=== PATIENT | female | born 2000 | race American Indian/Alaskan Native ===

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

== ENCOUNTER → 2020-07-04 | Emergency (ER) | payer MEDICAID ==
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
[2020-07-04 09:57] VITALS: BP 130/64; PULSE 78
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
== END | disposition home or self-care (01) ==
LOC: DL.ED 09:21
DX: S60.221A Contusion of right hand, initial encounter (principal); E66.9 Obesity, unspecified; Z91.018 Allergy to other foods; Z91.09 Other allergy status, other than to drugs and biological substances; Z68.29 Body mass index [BMI] 29.0-29.9, adult; W22.8XXA Striking against or struck by other objects, initial encounter
CPT/HCPCS: 73100-RT; 73130-RT; 99283

== ENCOUNTER 2021-03-19 16:45 | Emergency (ER) | payer MEDICAID ==
[2021-03-19 17:41] VITALS: BP 133/81; PULSE 74
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
[2021-03-19] MEDS ORDERED: Ibuprofen 400 MG Tab PO ONE (19:41)
== END 2021-03-19 19:51 | disposition home or self-care (01) ==
LOC: DL.ED 16:45
DX: S50.02XA Contusion of left elbow, initial encounter (principal); Z72.0 Tobacco use; E66.9 Obesity, unspecified; Z68.30 Body mass index [BMI] 30.0-30.9, adult; Z91.048 Other nonmedicinal substance allergy status; W18.39XA Other fall on same level, initial encounter
CPT/HCPCS: 73080-LT; 99283-25; A9270-GY

== ENCOUNTER 2021-06-19 11:44 | Emergency (ER) | payer MEDICAID ==
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
[2021-06-19 12:06] VITALS: BP 135/75; PULSE 108
[2021-06-19] MEDS ORDERED: Ibuprofen 400 MG Tab PO ONE (12:18)
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
== END 2021-06-19 12:40 | disposition home or self-care (01) ==
LOC: DL.ED 11:44
DX: S67.21XA Crushing injury of right hand, initial encounter (principal); S60.511A Abrasion of right hand, initial encounter; E66.9 Obesity, unspecified; Z68.30 Body mass index [BMI] 30.0-30.9, adult; Z91.018 Allergy to other foods; Z91.09 Other allergy status, other than to drugs and biological substances; W22.09XA Striking against other stationary object, initial encounter
CPT/HCPCS: 73130-RT; 99283; 99283-25; A9270-GY

== ENCOUNTER 2021-09-03 10:49 | Emergency (ER) | payer MEDICAID ==
[2021-09-03 11:13] VITALS: PULSE 79
[2021-09-03 11:40] LABS: CORONAVIRUS COVID-19 NAA NEGATIVE (NEGATIVE)
== END 2021-09-03 13:11 | disposition home or self-care (01) ==
LOC: DL.ED 10:49
DX: J06.9 Acute upper respiratory infection, unspecified (principal); E66.9 Obesity, unspecified; Z68.32 Body mass index [BMI] 32.0-32.9, adult; Z72.0 Tobacco use; Z91.09 Other allergy status, other than to drugs and biological substances; Z91.018 Allergy to other foods; Z20.822 Contact with and (suspected) exposure to COVID-19
CPT/HCPCS: 0240U; 81001; 81025; 87081; 87430; 99283; 99282

== ENCOUNTER 2022-11-04 14:51 | Emergency (ER) | payer MEDICAID, SELFPAY ==
[2022-11-04 15:05] VITALS: BP 150/70; PULSE 108
[2022-11-04] MEDS ORDERED: Ketorolac 30 MG/ML SDV IM ONE (15:26)
== END 2022-11-04 15:37 | disposition home or self-care (01) ==
LOC: DL.ED 14:51
DX: R07.81 Pleurodynia (principal); E66.9 Obesity, unspecified; Z68.35 Body mass index [BMI] 35.0-35.9, adult; Z72.0 Tobacco use; Z91.048 Other nonmedicinal substance allergy status; Z91.018 Allergy to other foods
CPT/HCPCS: 96372; 99283; J1885

== ENCOUNTER 2024-07-22 03:33 | Emergency (ER) | payer SELFPAY ==
[2024-07-22 03:51] VITALS: BP 150/60; PULSE 97
[2024-07-22] MEDS: Diphtheria,Pertussis(Acell),Tetanus Vaccine 0.5 ML Syringe IM ONE (04:07)
[2024-07-22] MEDS: cefTRIAXone 1 GM, Lidocaine 1% 2.1 ML IM ONE (04:08)
== END 2024-07-22 04:17 | disposition home or self-care (01) ==
LOC: DL.ED 03:33
DX: S01.81XA Laceration without foreign body of other part of head, initial encounter (principal); Z23 Encounter for immunization; E66.9 Obesity, unspecified; Z68.36 Body mass index [BMI] 36.0-36.9, adult; Z91.048 Other nonmedicinal substance allergy status; Z91.018 Allergy to other foods; W01.0XXA Fall on same level from slipping, tripping and stumbling without subsequent striking against object, initial encounter
CPT/HCPCS: 12011; 90471; 90715; 96372; 99282; J0696; J3490

== ENCOUNTER 2025-09-18 15:03 | Emergency (ER) | payer SELFPAY ==
[2025-09-18 15:33] VITALS: BP 139/78; PULSE 99
[2025-09-18] MEDS: Carboxymethylcellulose Sodium 1% Ophth Gel 0.4 ML UD Box of 30 EYEBOTH PRN (15:48)
== END 2025-09-18 16:37 | disposition home or self-care (01) ==
LOC: DL.ED 15:03
DX: H15.9 Unspecified disorder of sclera (principal); Z91.048 Other nonmedicinal substance allergy status; Z91.018 Allergy to other foods; F17.200 Nicotine dependence, unspecified, uncomplicated
CPT/HCPCS: 99283; A9270; Q0163